=== PATIENT | female | born 1960 | race Hispanic/Latino ===

== ENCOUNTER 2024-11-29 13:29 | Emergency (ER) | payer MEDICARE ==
[~2024-11-29] VITALS: Ht 175.3 cm; Wt 122.5 kg
[2024-11-29 14:19] VITALS: PULSE 75; RESP 16; TEMP 97.8
[2024-11-29] MEDS ORDERED: SODIUM CHLORIDE 0.9% 1000ML 1,000 ML ONE (15:54)
[2024-11-29] MEDS: KETOROLAC TROMETHAMINE 30 MG/ML VIAL IV STA (16:15)
[2024-11-29] MEDS: METOCLOPRAMIDE HCL 10 MG/2ML VIAL IV ONE (16:15)
[2024-11-29] MEDS: SODIUM CHLORIDE 0.9% 1000ML 1,000 ML IV SCH (16:15)
[2024-11-29] MEDS: DIPHENHYDRAMINE HCL 25 MG CAP PO ONE (16:16)
[2024-11-29] MEDS ORDERED: CYCLOBENZAPRINE5 MG PO (19:03)
[2024-11-29] MEDS ORDERED: NAPROSYN500 MG PO (19:03)
[2024-11-29] MEDS ORDERED: AMOX TR-K CLV1 EAC2 PO (19:03)
[2024-11-29 19:25] VITALS: BP 142/84; PULSE 84; RESP 18; TEMP 98.3; O2SAT 98
[2024-12-01] MEDS ORDERED: CYCLOBENZAPRINE5 MG PO (11:30)
== END 2024-11-29 19:30 | disposition home or self-care (01) ==
LOC: ER 15:32
DX: G44.209 Tension-type headache, unspecified, not intractable (principal); J32.9 Chronic sinusitis, unspecified; M62.838 Other muscle spasm; I10 Essential (primary) hypertension; E11.9 Type 2 diabetes mellitus without complications; E78.5 Hyperlipidemia, unspecified
CPT/HCPCS: 70450; 71250; 72125; 99284; J1885; J2765; J7030